=== PATIENT | male | born 1975 | race African-American/Black ===

== ENCOUNTER 2017-09-14 09:01 | Emergency (ER) | payer SELFPAY ==
[~2017-09-14] VITALS: Ht 195.6 cm; Wt 87.2 kg
[2017-09-14 09:03] VITALS: BP 131/77
== END 2017-09-14 10:03 | disposition home or self-care (01) ==
LOC: ED 09:40
DX: I10 Essential (primary) hypertension (principal); K08.89 Other specified disorders of teeth and supporting structures
CPT/HCPCS: 82962; 99283